=== PATIENT | male | born 1990 | race Caucasian/White ===

== ENCOUNTER 2018-09-16 12:06 | Inpatient (IN) | payer MEDICAID ==
[~2018-09-16] VITALS: Ht 182.9 cm; Wt 128.4 kg
[2018-09-16] MEDS ORDERED: DIVA500T52 PO (12:10)
[2018-09-16] MEDS ORDERED: SERT50TA12 PO (12:10)
[2018-09-16] MEDS ORDERED: ARIP2 PO (12:10)
[2018-09-16 12:19] VITALS: BP 152/86
[2018-09-16] MEDS ORDERED: HALOPERIDOL 5 MG TABLET PO PRN (12:45)
[2018-09-16] MEDS ORDERED: IBUPROFEN 400 MG TABLET PO PRN (14:45)
[2018-09-16] MEDS ORDERED: CloNIDine HCL 0.1 MG TABLET PO PRN (14:45)
[2018-09-16] MEDS ORDERED: LOPERAMIDE HCL 2 MG CAPSULE PO PRN (14:45)
[2018-09-16] MEDS ORDERED: GuaiFENesin/D-METHORPHAN [SUGAR-FREE] 200-20MG/10 ML SYRUP UDCUP PO PRN (14:45)
[2018-09-16] MEDS ORDERED: ACETAMINOPHEN 325 MG TABLET PO PRN (14:45)
[2018-09-16] MEDS ORDERED: ALBUTEROL SULFATE HFA 90 MCG/PUFF 8 GM INHALER IH PRN (14:45)
[2018-09-16] MEDS ORDERED: ONDANSETRON HCL 4 MG TABLET PO PRN (14:45)
[2018-09-16] MEDS ORDERED: MAGNESIUM HYDROXIDE SUSPENSION 30 ML UDCUP PO PRN (14:45)
[2018-09-16] MEDS ORDERED: PETROLATUM,WHITE 28 GM JELLY TP PRN (14:45)
[2018-09-16] MEDS ORDERED: DOCUSATE SODIUM 100 MG CAPSULE PO PRN (14:45)
[2018-09-16] MEDS ORDERED: MAG HYDROX/AL HYDROX/SIMETH ES 30 ML SUSPENSION UDCUP PO PRN (14:45)
[2018-09-16 15:03] VITALS: BP 141/87
[2018-09-16 16:03] VITALS: BP 135/74
[2018-09-16] MEDS: DIVALPROEX SODIUM 500 MG ER TABLET PO SCH (20:49)
[2018-09-17 01:26] VITALS: BP 136/78
[2018-09-17] MEDS: LORazepam 2 MG TABLET PO PRN (03:57)
[2018-09-17 07:45] LABS: BASOPHILS % (AUTO) 0.4 % (0.0-2.0); HEMATOCRIT 45.5 % (41-53); HEMOGLOBIN 15.5 g/dL (13.5-17.5); LYMPHOCYTES # (AUTO) 2.8 K/uL (1.0-4.8); MEAN CORPUSCULAR HEMOGLOBIN 28.8 pg (26.0-34.0); MEAN CORPUSCULAR VOLUME 85 fL (80-100); MONOCYTES # (AUTO) 0.7 K/uL (0.1-1.0); MONOCYTES % (AUTO) 8.2 % (2.0-9.0); NEUTROPHILS # (AUTO) 4.7 K/uL (1.8-7.7); NEUTROPHILS % (AUTO) 56.4 % (40.0-70.0); PLATELET COUNT (AUTO) 195 K/uL (150-450); RED BLOOD CELL COUNT(AUTO) 5.36 MIL/uL (4.50-5.90); RED CELL DISTRIBUTION WIDTH 13.4 % (11.5-14.5)
[2018-09-17 07:57] LABS: AMPHET/METH SCREEN,URINE NEGATIVE (NEGATIVE); BARBITURATE SCREEN, URINE NEGATIVE (NEGATIVE); BENZODIAZEPINES SCREEN,URINE NEGATIVE (NEGATIVE); CANNABINOID SCREEN,URINE POSITIVE (NEGATIVE); COCAINE SCREEN,URINE NEGATIVE (NEGATIVE); METHADONE SCREEN, URINE NEGATIVE (NEGATIVE); OPIATE SCREEN,URINE NEGATIVE (NEGATIVE); PHENCYCLIDINE SCREEN,URINE NEGATIVE (NEGATIVE)
[2018-09-17 08:02] LABS: HEMOGLOBIN A1C 5.7 % (4.5-6.2)
[2018-09-17 08:02] LABS: APPEARANCE,URINE CLEAR (CLEAR); BILIRUBIN,URINE NEGATIVE (NEGATIVE); GLUCOSE, URINE (UA) NEGATIVE (NEGATIVE); KETONES,URINE TRACE mg/dL (NEGATIVE); LEUKOCYTE ESTERASE ,URINE NEGATIVE (NEGATIVE); NITRATE,URINE NEGATIVE (NEGATIVE); OCCULT BLOOD,URINE NEGATIVE (NEGATIVE); PH,URINE 5.5 (5.0-8.0); PROTEIN,URINE NEGATIVE (NEGATIVE); UROBILINOGEN,URINE 0.2 mg/dL (<=1.0)
[2018-09-17] MEDS: ARIPiprazole 5 MG TABLET PO SCH (08:07)
[2018-09-17] MEDS: SERTRALINE HCL 50 MG TABLET PO SCH (08:07)
[2018-09-17 08:20] LABS: ALANINE AMINOTRANSFERASE 34 U/L (12-78); ALBUMIN 3.8 g/dL (3.4-5.0); ALKALINE PHOSPHATASE 72 U/L (46-116); ANION GAP 9 mmol/L (8-16); ASPARTATE AMINOTRANSFERASE 25 U/L (15-37); BILIRUBIN,TOTAL 0.4 mg/dL (0.1-1.0); CALCIUM, TOTAL 8.5 mg/dL (8.8-10.5); CARBON DIOXIDE 27 mmol/L (22-29); CHLORIDE 103 mmol/L (98-107); CHOL/HDL RATIO 5.5 (4.2-7.3); CHOLESTEROL 198 mg/dL (131-200); CREATININE 1.14 mg/dL (0.60-1.30); FREE T4 (FREE THYROXINE) 0.96 ng/dL (0.76-1.46); GLOMERULAR FILTR. RATE CALC > 60 mL/min (>60); GLUCOSE,RANDOM 74 mg/dL (70-110); HDL CHOLESTEROL 36 mg/dL (40-60); LDL CHOL (CALC.) 126 mg/dL (0-130); POTASSIUM 4.2 mmol/L (3.5-5.1); SODIUM SERUM 139 mmol/L (136-145); THYROID STIMULATING HORMONE 5.62 uIU/mL (0.36-3.74); TOTAL PROTEIN, SERUM 7.2 g/dL (6.4-8.2); TRIGLYCERIDES 181 mg/dL (15-150); UREA NITROGEN, BLOOD 14 mg/dL (7-18); VALPROIC ACID 96 mcg/mL (50-100)
[2018-09-17 09:31] VITALS: BP 139/99
[2018-09-17 16:01] VITALS: BP 123/74
[2018-09-17] MEDS: NICOTINE 14 MG/24 HOUR PATCH TD PRN (18:09)
[2018-09-17] MEDS: DIVALPROEX SODIUM 500 MG ER TABLET PO SCH (20:37)
[2018-09-17] MEDS: ZOLPIDEM TARTRATE 10 MG TABLET PO PRN (22:51)
[2018-09-18 01:05] VITALS: BP 138/98
[2018-09-18 08:01] VITALS: BP 144/82
[2018-09-18] MEDS: ARIPiprazole 5 MG TABLET PO SCH (08:16)
[2018-09-18] MEDS: SERTRALINE HCL 50 MG TABLET PO SCH (08:16)
[2018-09-18] MEDS: NICOTINE 14 MG/24 HOUR PATCH TD PRN (10:04)
[2018-09-18 16:02] VITALS: BP 131/88
[2018-09-18] MEDS: DIVALPROEX SODIUM 500 MG ER TABLET PO SCH (20:24)
[2018-09-18] MEDS: ZOLPIDEM TARTRATE 10 MG TABLET PO PRN (22:06)
[2018-09-19 05:30] VITALS: BP 115/91
[2018-09-19] MEDS: LORazepam 2 MG TABLET PO PRN ×2 (05:37→13:41)
[2018-09-19 08:17] VITALS: BP 131/75
[2018-09-19] MEDS: ARIPiprazole 5 MG TABLET PO SCH (08:17)
[2018-09-19] MEDS: SERTRALINE HCL 50 MG TABLET PO SCH (08:17)
[2018-09-19] MEDS ORDERED: ARIPiprazole 5 MG TABLET PO ONE (09:45)
[2018-09-19] MEDS: NICOTINE 14 MG/24 HOUR PATCH TD PRN (11:24)
[2018-09-19 16:17] VITALS: BP 133/89
[2018-09-19] MEDS: DIVALPROEX SODIUM 500 MG ER TABLET PO SCH (20:40)
[2018-09-20 04:34] VITALS: BP 114/74
[2018-09-20 08:05] VITALS: BP 140/89
[2018-09-20] MEDS: SERTRALINE HCL 50 MG TABLET PO SCH (08:12)
[2018-09-20] MEDS: NICOTINE 14 MG/24 HOUR PATCH TD PRN (08:12)
[2018-09-20] MEDS: ARIPiprazole 10 MG TABLET PO SCH (08:12)
[2018-09-20] MEDS: LORazepam 2 MG TABLET PO PRN (12:34)
[2018-09-20 16:00] VITALS: BP 140/90
[2018-09-20] MEDS: DIVALPROEX SODIUM 500 MG ER TABLET PO SCH (20:33)
[2018-09-20] MEDS: ZOLPIDEM TARTRATE 10 MG TABLET PO PRN (21:43)
[2018-09-21 06:14] VITALS: BP 120/80
[2018-09-21] MEDS: SERTRALINE HCL 50 MG TABLET PO SCH (08:15)
[2018-09-21] MEDS: ARIPiprazole 10 MG TABLET PO SCH (08:15)
[2018-09-21 08:20] VITALS: BP 129/73
[2018-09-21] MEDS: NICOTINE 14 MG/24 HOUR PATCH TD PRN (08:30)
[2018-09-21] MEDS: LORazepam 2 MG TABLET PO PRN ×2 (09:29→16:09)
[2018-09-21 16:05] VITALS: BP 109/66
[2018-09-21] MEDS: DIVALPROEX SODIUM 500 MG ER TABLET PO SCH (20:29)
[2018-09-22 06:02] VITALS: BP 116/78
[2018-09-22] MEDS: LORazepam 2 MG TABLET PO PRN (07:11)
[2018-09-22 08:02] VITALS: BP 132/83
[2018-09-22] MEDS: ARIPiprazole 10 MG TABLET PO SCH (08:04)
[2018-09-22] MEDS: SERTRALINE HCL 50 MG TABLET PO SCH (08:04)
[2018-09-22] MEDS ORDERED: ARIP10TA8 PO ×2 (09:09→09:24)
[2018-09-22] MEDS ORDERED: SERT50TA12 PO (09:24)
[2018-09-22] MEDS ORDERED: DIVA500T52 PO (09:24)
[2018-09-22 16:04] VITALS: BP 122/86
== END 2018-09-22 18:00 | disposition home or self-care (01) | DRG 750 ==
LOC: B2S 13:29
DX: F25.1 Schizoaffective disorder, depressive type (principal); R45.851 Suicidal ideations; E03.9 Hypothyroidism, unspecified; E78.5 Hyperlipidemia, unspecified; F32.9 Major depressive disorder, single episode, unspecified; F41.9 Anxiety disorder, unspecified; F10.10 Alcohol abuse, uncomplicated; F12.10 Cannabis abuse, uncomplicated; Z79.899 Other long term (current) drug therapy; Z85.47 Personal history of malignant neoplasm of testis; Z71.51 Drug abuse counseling and surveillance of drug abuser; Z71.41 Alcohol abuse counseling and surveillance of alcoholic
CPT/HCPCS: 83036; 84439; 84443